=== PATIENT | male | born 1985 | race African-American/Black ===

== ENCOUNTER 2016-10-26 11:45 | Emergency (ER) | payer MEDICAID ==
[~2016-10-26] VITALS: Ht 177.8 cm; Wt 88.5 kg
[2016-10-26 11:45] VITALS: BP 138/74
--- NOTE | 2016-10-26 12:12 | NUR ---
[employer] REPRES[employer]IVE AT BEDSIDE FOR EVAL.
--- NOTE | 2016-10-26 12:35 | NUR ---
PT TO RADIOLOGY FOR HEAD AND NECK CT SCAN VIA WHEELCHAIR.
== END 2016-10-26 13:37 | disposition home or self-care (01) ==
LOC: ER 11:47
DX: S06.0X0A Concussion without loss of consciousness, initial encounter (principal); S16.1XXA Strain of muscle, fascia and tendon at neck level, initial encounter; W22.8XXA Striking against or struck by other objects, initial encounter; Y93.89 Activity, other specified; Y92.89 Other specified places as the place of occurrence of the external cause; Y99.8 Other external cause status
CPT/HCPCS: 70450; 72125; 99284; A4606; Z7610

== ENCOUNTER 2017-04-24 23:00 | Emergency (ER) | payer SELFPAY ==
[~2017-04-24] VITALS: Ht 182.9 cm; Wt 83.9 kg
[2017-04-24 23:12] VITALS: BP 130/76
== END 2017-04-25 00:27 | disposition home or self-care (01) ==
LOC: ER 23:01
DX: S06.0X0A Concussion without loss of consciousness, initial encounter (principal); F41.9 Anxiety disorder, unspecified; W06.XXXA Fall from bed, initial encounter; Y93.89 Activity, other specified; Y92.89 Other specified places as the place of occurrence of the external cause; Y99.9 Unspecified external cause status
CPT/HCPCS: 70450; 99284; A4606; Z7610